=== PATIENT | male | born 1945 | race Caucasian/White ===

== ENCOUNTER 2017-04-24 18:08 | Inpatient (IN) | payer MEDICARE, MEDICAID, OTHER ==
[~2017-04-24] VITALS: Ht 167.6 cm; Wt 65.9 kg
[2017-04-24] MEDS ORDERED: SODIUM CHLORIDE 0.9% 1,000 ML IV SCH (18:14)
[2017-04-24] MEDS ORDERED: MIDAZOLAM HCL 25 MG in SODIUM CHLORIDE 0.9% 245 ML IV PRN (18:23)
[2017-04-24 18:26] LABS: HEMATOCRIT 45.5 % (39.2-51.8); HEMOGLOBIN 15.4 g/dL (13.7-18.0); WHITE BLOOD COUNT 8.4 x10^3/uL (3.4-10)
[2017-04-24] MEDS ORDERED: SODIUM CHLORIDE 0.9% 1,000ML IVBOLUS ONE (18:30)
[2017-04-24] MEDS ORDERED: ONDANSETRON 2MG/ML, 2ML IVPush ONE (18:30)
[2017-04-24] MEDS ORDERED: ASPIRIN 81 MG TABLET CHEW PO ONE (18:30)
[2017-04-24] MEDS ORDERED: MIDAZOLAM 1 MG/ML, 5ML IVP ONE (18:30)
[2017-04-24] MEDS ORDERED: PLEASE ENTER HEIGHT AND WEIGHT MC SCH (18:30)
[2017-04-24] MEDS ORDERED: VECURONIUM 10 MG IVPush ONE (18:30)
[2017-04-24] MEDS ORDERED: PLEASE ENTER ALLERGIES MC SCH ×2 (18:30)
[2017-04-24] MEDS ORDERED: MIDAZOLAM HCL 100 MG in SODIUM CHLORIDE 0.9% 80 ML IV PRN (18:30)
[2017-04-24] MEDS ORDERED: FENTANYL PF 100 MCG/2ML ONE (18:37)
[2017-04-24] MEDS ORDERED: VERAPAMIL 2.5 MG/ML, 2ML ONE (18:37)
[2017-04-24] MEDS ORDERED: MIDAZOLAM 1 MG/ML, 5ML ONE (18:37)
[2017-04-24] MEDS ORDERED: TICAGRELOR 90 MG TABLET ONE (18:37)
[2017-04-24] MEDS ORDERED: NITROGLYCERIN 5 MG/ML, 10ML ONE (18:38)
[2017-04-24] MEDS ORDERED: HEPARIN 1,000 UNITS/ML, 10ML ONE (18:38)
[2017-04-24] MEDS ORDERED: LIDOCAINE 2%, 20ML ONE (18:38)
[2017-04-24] MEDS ORDERED: BIVALIRUDIN 250 MG ONE (18:38)
[2017-04-24 18:39] LABS: ASPARTATE AMINO TRANSFERASE 183 U/L (15-37); BLOOD UREA NITROGEN 9 mg/dL (7-18)
[2017-04-24 18:40] LABS: ABG COLLECTION SITE LEFT RADIAL; COLLATERAL CIRCULATION TESTING NORMAL
[2017-04-24 18:49] LABS: IS PT STATUS REG ER OR PRE ER? YES
[2017-04-24] MEDS ORDERED: ASPIRIN 300 MG SUPP ONE (18:52)
[2017-04-24] MEDS ORDERED: VECURONIUM 10 MG ONE (18:52)
[2017-04-24] MEDS ORDERED: PIPERACILLIN/TAZO/PMX 3.375GM 50 ML IV ONE (19:00)
[2017-04-24] MEDS ORDERED: ASPIRIN 300 MG SUPP PR ONE (19:00)
[2017-04-24] MEDS ORDERED: CODE BLUE RESPONSE XX ONE (19:00)
[2017-04-24] MEDS ORDERED: SODIUM BICARB 8.4%, 50ML SYRINGE ONE (19:49)
[2017-04-24] MEDS ORDERED: AMIODARONE 150 MG in DEXTROSE 5% 100 ML IVPB ONE (19:57)
[2017-04-24] MEDS ORDERED: AMIODARONE 900 MG in DEXTROSE 5% 482 ML IV PRN ×2 (19:57→20:00)
[2017-04-24] MEDS ORDERED: AMIODARONE 150 MG in DEXTROSE 5% 100 ML IV ONE (20:00)
[2017-04-24] MEDS ORDERED: FILTER 0.22 MICRON IV PRN (20:00)
[2017-04-24] MEDS ORDERED: PROPOFOL 100 ML IV PRN (20:21)
[2017-04-24] MEDS ORDERED: PHARMACY MAY ADJ FOR RENAL FX MC SCH (20:30)
[2017-04-24] MEDS ORDERED: LIDOCAINE-MPF 1%, 2ML ENDO PRN (20:30)
[2017-04-24] MEDS ORDERED: HEPARIN 25,000 UNITS/500ML PMX 500 ML IV PRN (20:30)
[2017-04-24] MEDS ORDERED: HEPARIN 5,000 UNITS/ML, 1ML IV ONE (20:30)
[2017-04-24 20:38] LABS: HEMATOCRIT 44.3 % (39.2-51.8); HEMOGLOBIN 14.9 g/dL (13.7-18.0)
[2017-04-24] MEDS ORDERED: SODIUM PHOSPHATE 20 MMOL in SODIUM CHLORIDE 0.9% 250 ML IVPB PRN (21:06)
[2017-04-24] MEDS ORDERED: DEXMEDETOMIDINE 200 MCG in SODIUM CHLORIDE 0.9% 48 ML IV PRN (21:06)
[2017-04-24] MEDS ORDERED: FENTANYL PF 250 MCG in SODIUM CHLORIDE 0.9% 250 ML IV PRN (21:06)
[2017-04-24] MEDS ORDERED: OCULAR LUBRICANT OPHTH OINT 3.5 GM EACHEYE SCH (21:30)
[2017-04-24] MEDS ORDERED: KSCALE TO 4.0 IV SCH (21:30)
[2017-04-24] MEDS ORDERED: MAGNESIUM SULFATE 1 GM in SODIUM CHLORIDE 0.9% 50 ML IVPB PRN (21:30)
[2017-04-24] MEDS ORDERED: NOREPINEPHRINE 4 MG in SODIUM CHLORIDE 0.9% 246 ML IV PRN (21:30)
[2017-04-24] MEDS ORDERED: BUSPIRONE 10 MG TABLET NG SCH (21:30)
[2017-04-24] MEDS ORDERED: VECURONIUM 10 MG IVPush PRN (21:30)
[2017-04-24] MEDS ORDERED: FAMOTIDINE 20 MG/2 ML IVPush SCH (21:30)
[2017-04-24] MEDS: ATORVASTATIN 80 MG TABLET PO SCH (21:58)
[2017-04-24] MEDS: AMPICILLIN/SULBACTAM 3 GM in SODIUM CHLORIDE 0.9% 100 ML IV SCH (21:58)
[2017-04-24] MEDS: NOREPINEPHRINE 4 MG in SODIUM CHLORIDE 0.9% 246 ML IV PRN (23:18)
[2017-04-25 00:15] LABS: HEMATOCRIT 46.8 % (39.2-51.8); HEMOGLOBIN 15.8 g/dL (13.7-18.0)
[2017-04-25] MEDS: AMPICILLIN/SULBACTAM 3 GM in SODIUM CHLORIDE 0.9% 100 ML IV SCH ×4 (02:18→20:32)
[2017-04-25 02:51] LABS: ABG COLLECTION SITE LEFT BRACHIAL
[2017-04-25 03:02] LABS: BLOOD UREA NITROGEN 16 mg/dL (7-18)
[2017-04-25 03:24] LABS: HEMATOCRIT 42.9 % (39.2-51.8); HEMOGLOBIN 14.8 g/dL (13.7-18.0); WHITE BLOOD COUNT 14.6 x10^3/uL (3.4-10)
[2017-04-25 04:00] VITALS: BP 105/58
[2017-04-25] MEDS: HEPARIN 5,000 UNITS/ML, 1ML IV PRN ×2 (04:02→13:42)
[2017-04-25] MEDS: ASPIRIN 81 MG TABLET EC PO SCH (09:00)
[2017-04-25] MEDS: PANTOPRAZOLE 40 MG IV IV SCH (09:17)
[2017-04-25] MEDS: NOREPINEPHRINE 4 MG in SODIUM CHLORIDE 0.9% 246 ML IV PRN ×2 (09:18→17:52)
[2017-04-25 09:36] LABS: IS PT STATUS REG ER OR PRE ER? NO
[2017-04-25] MEDS: MVI ADULT IV SCH (12:38)
[2017-04-25] MEDS: THIAMINE IV SCH (12:38)
[2017-04-25] MEDS: FOLIC ACID IV SCH (12:38)
[2017-04-25] MEDS: SODIUM CHLORIDE 0.9% IV SCH (12:38)
[2017-04-25 12:52] LABS: HEMATOCRIT 42.9 % (39.2-51.8); HEMOGLOBIN 14.6 g/dL (13.7-18.0)
[2017-04-25 14:35] LABS: IS PT STATUS REG ER OR PRE ER? NO
[2017-04-25] MEDS: MIDAZOLAM HCL 25 MG in SODIUM CHLORIDE 0.9% 245 ML IV PRN (17:44)
[2017-04-25 17:50] LABS: HEMATOCRIT 38.3 % (39.2-51.8); HEMOGLOBIN 12.9 g/dL (13.7-18.0)
[2017-04-25] MEDS: ATORVASTATIN 80 MG TABLET PO SCH (21:31)
[2017-04-25 22:07] LABS: HEMATOCRIT 37.1 % (39.2-51.8); HEMOGLOBIN 12.6 g/dL (13.7-18.0)
[2017-04-25 22:22] LABS: IS PT STATUS REG ER OR PRE ER? NO
[2017-04-26] MEDS: NOREPINEPHRINE 4 MG in SODIUM CHLORIDE 0.9% 246 ML IV PRN (02:30)
[2017-04-26] MEDS: AMPICILLIN/SULBACTAM 3 GM in SODIUM CHLORIDE 0.9% 100 ML IV SCH ×4 (02:30→20:25)
[2017-04-26] MEDS: MIDAZOLAM HCL 25 MG in SODIUM CHLORIDE 0.9% 245 ML IV PRN (03:02)
[2017-04-26 03:29] LABS: HEMATOCRIT 36.5 % (39.2-51.8); HEMOGLOBIN 12.3 g/dL (13.7-18.0); WHITE BLOOD COUNT 11.8 x10^3/uL (3.4-10)
[2017-04-26 03:34] LABS: BLOOD UREA NITROGEN 21 mg/dL (7-18)
[2017-04-26 04:00] VITALS: BP 128/72
[2017-04-26 04:39] LABS: ABG COLLECTION SITE LEFT BRACHIAL
[2017-04-26] MEDS ORDERED: MAGNESIUM SULFATE PMX 4GM/100M 100 ML IV ONE (07:30)
[2017-04-26] MEDS: ASPIRIN 81 MG TABLET EC PO SCH (09:25)
[2017-04-26] MEDS: PANTOPRAZOLE 40 MG IV IV SCH (09:25)
[2017-04-26 11:06] LABS: HEMATOCRIT 33.9 % (39.2-51.8); HEMOGLOBIN 11.8 g/dL (13.7-18.0)
[2017-04-26] MEDS: MVI ADULT IV SCH (12:30)
[2017-04-26] MEDS: THIAMINE IV SCH (12:30)
[2017-04-26] MEDS: SODIUM CHLORIDE 0.9% IV SCH (12:30)
[2017-04-26] MEDS: FOLIC ACID IV SCH (12:30)
[2017-04-26] MEDS ORDERED: SODIUM CHLORIDE 0.9%, 250ML IVBOLUS ONE (13:00)
[2017-04-26 16:46] LABS: HEMATOCRIT 33.4 % (39.2-51.8); HEMOGLOBIN 11.5 g/dL (13.7-18.0)
[2017-04-26] MEDS ORDERED: DIAZEPAM 5 MG/ML, 2ML IVPush PRN (17:00)
[2017-04-26] MEDS: ATORVASTATIN 80 MG TABLET PO SCH (20:25)
[2017-04-26 21:08] LABS: HEMATOCRIT 32.2 % (39.2-51.8)
[2017-04-27] MEDS: AMPICILLIN/SULBACTAM 3 GM in SODIUM CHLORIDE 0.9% 100 ML IV SCH ×4 (02:29→20:18)
[2017-04-27 04:00] VITALS: BP 103/58
[2017-04-27 04:20] LABS: ABG COLLECTION SITE LEFT RADIAL; COLLATERAL CIRCULATION TESTING NORMAL
[2017-04-27 04:24] LABS: HEMOGLOBIN 10.6 g/dL (13.7-18.0); WHITE BLOOD COUNT 9.9 x10^3/uL (3.4-10)
[2017-04-27 04:26] LABS: BLOOD UREA NITROGEN 24 mg/dL (7-18)
[2017-04-27] MEDS ORDERED: SODIUM CHLORIDE 0.9%, 250ML IVBOLUS ONE ×2 (07:30→10:30)
[2017-04-27] MEDS ORDERED: POTASSIUM CHLORIDE 40 MEQ in SODIUM CHLORIDE 0.9% 100 ML IV ONE (08:00)
[2017-04-27] MEDS ORDERED: SODIUM CHLORIDE 0.9% 1,000 ML IV SCH (08:00)
[2017-04-27] MEDS: FENTANYL PF 100 MCG/2ML IVPush PRN ×2 (08:11→12:36)
[2017-04-27] MEDS: PANTOPRAZOLE 40 MG IV IV SCH (09:21)
[2017-04-27] MEDS: POTASSIUM CHLORIDE 10% 40 MEQ/30 ML UDC PO SCH ×2 (09:21→20:18)
[2017-04-27] MEDS: CARVEDILOL 3.125 MG TABLET PO SCH ×2 (09:21→18:21)
[2017-04-27] MEDS: ASPIRIN 81 MG TABLET EC PO SCH (09:21)
[2017-04-27] MEDS: FOLIC ACID IV SCH (10:47)
[2017-04-27] MEDS: SODIUM CHLORIDE 0.9% IV SCH (10:47)
[2017-04-27] MEDS: MVI ADULT IV SCH (10:47)
[2017-04-27] MEDS: THIAMINE IV SCH (10:47)
[2017-04-27] MEDS ORDERED: DIAZEPAM 5 MG/ML, 2ML IVPush PRN (14:00)
[2017-04-27 19:08] LABS: HEMOGLOBIN 10.8 g/dL (13.7-18.0)
[2017-04-27] MEDS: ATORVASTATIN 80 MG TABLET PO SCH (20:18)
[2017-04-27] MEDS ORDERED: PROPOFOL 100 ML IV PRN (22:00)
[2017-04-28] MEDS: AMPICILLIN/SULBACTAM 3 GM in SODIUM CHLORIDE 0.9% 100 ML IV SCH ×4 (02:14→20:45)
[2017-04-28 04:00] VITALS: BP 90/64
[2017-04-28 04:45] LABS: ABG COLLECTION SITE RIGHT RADIAL; COLLATERAL CIRCULATION TESTING NORMAL
[2017-04-28 04:51] LABS: HEMATOCRIT 30.9 % (39.2-51.8); HEMOGLOBIN 10.6 g/dL (13.7-18.0); WHITE BLOOD COUNT 10.4 x10^3/uL (3.4-10)
[2017-04-28 05:00] LABS: BLOOD UREA NITROGEN 30 mg/dL (7-18)
[2017-04-28 05:03] LABS: ASPARTATE AMINO TRANSFERASE 195 U/L (15-37)
[2017-04-28] MEDS: CARVEDILOL 3.125 MG TABLET PO SCH ×2 (06:23→18:39)
[2017-04-28] MEDS ORDERED: FUROSEMIDE 20 MG/2 ML IV ONE (09:30)
[2017-04-28] MEDS ORDERED: ENOXAPARIN 30 MG/0.3 ML SQ SCH (09:30)
[2017-04-28] MEDS: PANTOPRAZOLE 40 MG IV IV SCH (09:52)
[2017-04-28] MEDS: ASPIRIN 81 MG TABLET EC PO SCH (09:52)
[2017-04-28] MEDS: HEPARIN 5,000 UNITS/ML, 1ML SQ SCH ×2 (11:02→19:29)
[2017-04-28] MEDS: THIAMINE IV SCH (11:42)
[2017-04-28] MEDS: MVI ADULT IV SCH (11:42)
[2017-04-28] MEDS: FOLIC ACID IV SCH (11:42)
[2017-04-28] MEDS: SODIUM CHLORIDE 0.9% IV SCH (11:42)
[2017-04-28 17:44] LABS: HEMATOCRIT 34.4 % (39.2-51.8); HEMOGLOBIN 11.6 g/dL (13.7-18.0)
[2017-04-28] MEDS ORDERED: ONDANSETRON 2MG/ML, 2ML IVPush PRN (18:30)
[2017-04-28] MEDS: OXYcodone/APAP 5/325MG TABLET PO PRN (20:51)
[2017-04-28] MEDS: ATORVASTATIN 80 MG TABLET PO SCH (20:51)
[2017-04-28] MEDS: DIAZEPAM 5 MG/ML, 10ML VIAL IVPush PRN (23:58)
[2017-04-29] MEDS: AMPICILLIN/SULBACTAM 3 GM in SODIUM CHLORIDE 0.9% 100 ML IV SCH ×4 (01:58→22:12)
[2017-04-29] MEDS: HEPARIN 5,000 UNITS/ML, 1ML SQ SCH ×3 (03:13→18:09)
[2017-04-29 04:00] VITALS: BP 93/54
[2017-04-29 04:24] LABS: ABG COLLECTION SITE RIGHT RADIAL; COLLATERAL CIRCULATION TESTING NORMAL
[2017-04-29 05:43] LABS: HEMATOCRIT 31.3 % (39.2-51.8); HEMOGLOBIN 10.7 g/dL (13.7-18.0); WHITE BLOOD COUNT 10.7 x10^3/uL (3.4-10)
[2017-04-29 05:50] LABS: BLOOD UREA NITROGEN 37 mg/dL (7-18)
[2017-04-29] MEDS: CARVEDILOL 3.125 MG TABLET PO SCH (06:16)
[2017-04-29] MEDS: ASPIRIN 81 MG TABLET EC PO SCH (09:00)
[2017-04-29] MEDS: PANTOPRAZOLE 40 MG IV IV SCH (10:18)
[2017-04-29] MEDS ORDERED: FUROSEMIDE 80 MG TABLET PO ONE (12:30)
[2017-04-29] MEDS ORDERED: FUROSEMIDE 40 MG/4 ML IV ONE ×2 (13:00→14:00)
[2017-04-29] MEDS: MVI ADULT IV SCH (15:48)
[2017-04-29] MEDS: SODIUM CHLORIDE 0.9% IV SCH (15:48)
[2017-04-29] MEDS: THIAMINE IV SCH (15:48)
[2017-04-29] MEDS: FOLIC ACID IV SCH (15:48)
[2017-04-29] MEDS: CARVEDILOL 6.25 MG TABLET PO SCH (18:31)
[2017-04-29] MEDS: ATORVASTATIN 80 MG TABLET PO SCH (21:14)
[2017-04-30] MEDS: DIAZEPAM 5 MG/ML, 10ML VIAL IVPush PRN ×3 (00:11→18:01)
[2017-04-30] MEDS: HEPARIN 5,000 UNITS/ML, 1ML SQ SCH ×3 (02:46→18:17)
[2017-04-30 04:00] VITALS: BP 106/56
[2017-04-30 04:37] LABS: BLOOD UREA NITROGEN 40 mg/dL (7-18)
[2017-04-30 04:38] LABS: HEMATOCRIT 29.7 % (39.2-51.8); WHITE BLOOD COUNT 9.9 x10^3/uL (3.4-10)
[2017-04-30 04:51] LABS: ABG COLLECTION SITE RIGHT RADIAL; COLLATERAL CIRCULATION TESTING NORMAL
[2017-04-30] MEDS: CARVEDILOL 6.25 MG TABLET PO SCH ×2 (06:14→18:00)
[2017-04-30] MEDS ORDERED: FUROSEMIDE 40 MG/4 ML IV ONE (08:30)
[2017-04-30] MEDS: PANTOPRAZOLE 40 MG IV IV SCH (08:48)
[2017-04-30] MEDS: POTASSIUM CHLORIDE 10% 40 MEQ/30 ML UDC PO SCH ×2 (08:48→21:18)
[2017-04-30] MEDS: ASPIRIN 81 MG TABLET CHEW PO SCH (09:11)
[2017-04-30] MEDS: AMPICILLIN/SULBACTAM 3 GM in SODIUM CHLORIDE 0.9% 100 ML IV SCH ×2 (10:34→21:19)
[2017-04-30] MEDS: OXYcodone/APAP 5/325MG TABLET PO PRN (16:53)
[2017-04-30] MEDS: ATORVASTATIN 80 MG TABLET PO SCH (21:18)
[2017-04-30] MEDS: FENTANYL PF 100 MCG/2ML IVPush PRN (22:14)
[2017-04-30] MEDS: ALBUTEROL SULFATE 2.5 MG/3 ML NPPB PRN (22:59)
[2017-05-01] MEDS ORDERED: FUROSEMIDE 40 MG/4 ML ONE (00:04)
[2017-05-01 00:43] LABS: ABG COLLECTION SITE RIGHT RADIAL; COLLATERAL CIRCULATION TESTING NORMAL
[2017-05-01] MEDS: DIAZEPAM 5 MG/ML, 10ML VIAL IVPush PRN ×2 (02:02→12:11)
[2017-05-01] MEDS: HEPARIN 5,000 UNITS/ML, 1ML SQ SCH ×3 (02:02→18:17)
[2017-05-01 03:59] LABS: HEMATOCRIT 34.6 % (39.2-51.8); HEMOGLOBIN 11.6 g/dL (13.7-18.0); WHITE BLOOD COUNT 12.9 x10^3/uL (3.4-10)
[2017-05-01 04:05] LABS: BLOOD UREA NITROGEN 46 mg/dL (7-18)
[2017-05-01 04:08] VITALS: BP 117/67
[2017-05-01 04:15] LABS: ABG COLLECTION SITE LEFT RADIAL; COLLATERAL CIRCULATION TESTING NORMAL
[2017-05-01] MEDS: CARVEDILOL 6.25 MG TABLET PO SCH (05:03)
[2017-05-01] MEDS: OXYcodone/APAP 5/325MG TABLET PO PRN ×2 (05:03→14:38)
[2017-05-01] MEDS: ALBUTEROL SULFATE 2.5 MG/3 ML NPPB SCH ×4 (07:00→19:30)
[2017-05-01] MEDS ORDERED: FUROSEMIDE 40 MG/4 ML IV ONE ×3 (07:30→18:00)
[2017-05-01] MEDS ORDERED: ALBUMIN HUMAN 25% 50 ML IV ONE (08:00)
[2017-05-01] MEDS: LIDODERM 5% PATCH TD SCH (09:02)
[2017-05-01] MEDS: PANTOPRAZOLE 40 MG IV IV SCH (09:02)
[2017-05-01] MEDS: ASPIRIN 81 MG TABLET CHEW PO SCH (09:02)
[2017-05-01] MEDS ORDERED: FILTER 0.22 MICRON IV PRN (11:00)
[2017-05-01] MEDS ORDERED: AMIODARONE 900 MG in DEXTROSE 5% 482 ML IV PRN (11:00)
[2017-05-01] MEDS ORDERED: AMIODARONE 150 MG in DEXTROSE 5% 100 ML IV ONE (11:00)
[2017-05-01 13:26] LABS: BLOOD UREA NITROGEN 47 mg/dL (7-18)
[2017-05-01] MEDS ORDERED: PIPERACILLIN/TAZO 2.25 GM in SODIUM CHLORIDE 0.9% 50 ML IV SCH (16:30)
[2017-05-01] MEDS: ACETAMINOPHEN 325 MG TABLET PO PRN (16:35)
[2017-05-01] MEDS: ATORVASTATIN 80 MG TABLET PO SCH (21:24)
[2017-05-01] MEDS: PIPERACILLIN/TAZO/PMX 2.25GM 50 ML IVPB SCH (22:21)
[2017-05-02] MEDS: HEPARIN 5,000 UNITS/ML, 1ML SQ SCH ×3 (03:24→22:42)
[2017-05-02] MEDS: DIAZEPAM 5 MG/ML, 10ML VIAL IVPush PRN ×3 (03:24→22:40)
[2017-05-02 04:00] VITALS: BP 102/67
[2017-05-02 04:34] LABS: ABG COLLECTION SITE LEFT RADIAL; COLLATERAL CIRCULATION TESTING NORMAL
[2017-05-02] MEDS: PIPERACILLIN/TAZO/PMX 2.25GM 50 ML IVPB SCH ×4 (04:34→22:40)
[2017-05-02 05:53] LABS: HEMATOCRIT 32.2 % (39.2-51.8); HEMOGLOBIN 10.8 g/dL (13.7-18.0); WHITE BLOOD COUNT 10.2 x10^3/uL (3.4-10)
[2017-05-02 05:57] LABS: ASPARTATE AMINO TRANSFERASE 81 U/L (15-37); BLOOD UREA NITROGEN 52 mg/dL (7-18)
[2017-05-02] MEDS: ALBUTEROL SULFATE 2.5 MG/3 ML NPPB SCH ×4 (07:00→19:30)
[2017-05-02 07:07] LABS: DIFF TOTAL CELLS COUNTED 100 CELL DIFF
[2017-05-02 07:09] LABS: VERIFY COUNTS? YES
[2017-05-02 07:11] LABS: ANISOCYTOSIS 1+; POLYCHROMASIA 1+
[2017-05-02 07:13] LABS: LARGE PLATELETS 1+
[2017-05-02] MEDS: FUROSEMIDE 40 MG/4 ML IV SCH ×2 (09:19→20:58)
[2017-05-02] MEDS: ASPIRIN 81 MG TABLET CHEW PO SCH (09:19)
[2017-05-02] MEDS: PANTOPRAZOLE 40 MG IV IV SCH (09:19)
[2017-05-02] MEDS: POTASSIUM CHLORIDE 10% 40 MEQ/30 ML UDC PO SCH ×2 (09:19→20:58)
[2017-05-02] MEDS: LIDODERM 5% PATCH TD SCH (10:06)
[2017-05-02] MEDS: ATORVASTATIN 80 MG TABLET PO SCH (20:58)
[2017-05-03] MEDS: DIAZEPAM 5 MG/ML, 10ML VIAL IVPush PRN ×3 (03:46→20:10)
[2017-05-03 04:00] VITALS: BP 105/57
[2017-05-03 04:42] LABS: ABG COLLECTION SITE RIGHT RADIAL; COLLATERAL CIRCULATION TESTING NORMAL
[2017-05-03] MEDS: PIPERACILLIN/TAZO/PMX 2.25GM 50 ML IVPB SCH ×4 (05:16→22:58)
[2017-05-03] MEDS: ALBUTEROL SULFATE 2.5 MG/3 ML NPPB SCH ×4 (05:33→19:03)
[2017-05-03 06:05] LABS: HEMATOCRIT 34.1 % (39.2-51.8); HEMOGLOBIN 11.3 g/dL (13.7-18.0); WHITE BLOOD COUNT 13.7 x10^3/uL (3.4-10)
[2017-05-03 06:27] LABS: BLOOD UREA NITROGEN 43 mg/dL (7-18)
[2017-05-03 07:05] LABS: DIFF TOTAL CELLS COUNTED 100 CELL DIFF
[2017-05-03 07:14] LABS: ANISOCYTOSIS 1+; POLYCHROMASIA 1+; VERIFY COUNTS? YES
[2017-05-03 07:15] LABS: LARGE PLATELETS 1+
[2017-05-03] MEDS: ASPIRIN 81 MG TABLET CHEW PO SCH (07:57)
[2017-05-03] MEDS: HEPARIN 5,000 UNITS/ML, 1ML SQ SCH ×3 (07:57→23:06)
[2017-05-03] MEDS: LIDODERM 5% PATCH TD SCH (07:58)
[2017-05-03] MEDS: PANTOPRAZOLE 40 MG IV IV SCH (07:58)
[2017-05-03] MEDS: GUAIFENESIN 100 MG/5 ML, 10ML UDC NG SCH ×4 (08:30→20:10)
[2017-05-03] MEDS ORDERED: GUAIFENESIN ER 600 MG TABLET PO SCH (09:00)
[2017-05-03] MEDS: POTASSIUM CHLORIDE 10% 40 MEQ/30 ML UDC PO SCH ×2 (10:05→15:56)
[2017-05-03] MEDS: FUROSEMIDE 40 MG/4 ML IV SCH ×2 (10:05→20:10)
[2017-05-03] MEDS: AMIODARONE 200 MG TABLET PO SCH ×2 (10:08→20:10)
[2017-05-03] MEDS ORDERED: BENZOCAINE 20% SPRAY 0.5ML TP ONE (11:30)
[2017-05-03] MEDS: ATORVASTATIN 80 MG TABLET PO SCH (20:10)
[2017-05-03] MEDS: OXYcodone/APAP 5/325MG TABLET PO PRN (21:26)
[2017-05-04] MEDS: GUAIFENESIN 100 MG/5 ML, 10ML UDC NG SCH ×6 (00:36→20:58)
[2017-05-04] MEDS: POTASSIUM CHLORIDE 10% 40 MEQ/30 ML UDC PO SCH ×3 (00:36→15:28)
[2017-05-04] MEDS: PIPERACILLIN/TAZO/PMX 2.25GM 50 ML IVPB SCH ×2 (03:59→10:47)
[2017-05-04 04:00] VITALS: BP 113/68
[2017-05-04] MEDS: DIAZEPAM 5 MG/ML, 10ML VIAL IVPush PRN (04:00)
[2017-05-04 04:33] LABS: ABG COLLECTION SITE LEFT RADIAL; COLLATERAL CIRCULATION TESTING NORMAL
[2017-05-04 06:04] LABS: HEMATOCRIT 34.9 % (39.2-51.8); HEMOGLOBIN 11.6 g/dL (13.7-18.0); WHITE BLOOD COUNT 12.4 x10^3/uL (3.4-10)
[2017-05-04 06:13] LABS: BLOOD UREA NITROGEN 44 mg/dL (7-18)
[2017-05-04 06:16] LABS: ASPARTATE AMINO TRANSFERASE 43 U/L (15-37)
[2017-05-04] MEDS: LIDODERM 5% PATCH TD SCH (08:35)
[2017-05-04] MEDS: HEPARIN 5,000 UNITS/ML, 1ML SQ SCH ×3 (08:36→23:05)
[2017-05-04] MEDS: PANTOPRAZOLE 40 MG IV IV SCH (08:36)
[2017-05-04] MEDS: AMIODARONE 200 MG TABLET PO SCH ×2 (08:37→19:43)
[2017-05-04] MEDS: ASPIRIN 81 MG TABLET CHEW PO SCH (08:37)
[2017-05-04] MEDS: FUROSEMIDE 40 MG/4 ML IV SCH ×2 (08:45→20:58)
[2017-05-04 14:00] VITALS: BP 123/71
[2017-05-04] MEDS: PIPERACILLIN/TAZO 3.375 GM in SODIUM CHLORIDE 0.9% 50 ML IVPB SCH ×2 (18:20→23:03)
[2017-05-04] MEDS: INSULIN DETEMIR 100 UNITS/ML, PEN SQ-INSULIN SCH (18:20)
[2017-05-04] MEDS: INSULIN ASPART 100 UNITS/ML, PEN SQ-INSULIN SCH ×2 (18:21→21:13)
[2017-05-04] MEDS: ATORVASTATIN 80 MG TABLET PO SCH (20:58)
[2017-05-05] MEDS ORDERED: DIAZEPAM 5 MG/ML, 10ML VIAL IVPush PRN (01:00)
[2017-05-05] MEDS: GUAIFENESIN 100 MG/5 ML, 10ML UDC NG SCH ×6 (01:21→20:48)
[2017-05-05] MEDS: POTASSIUM CHLORIDE 10% 40 MEQ/30 ML UDC PO SCH (01:21)
[2017-05-05] MEDS: HALOPERIDOL 5 MG/ML IV PRN (01:58)
[2017-05-05 03:57] VITALS: BP 106/68
[2017-05-05] MEDS: PIPERACILLIN/TAZO 3.375 GM in SODIUM CHLORIDE 0.9% 50 ML IVPB SCH ×4 (04:14→22:19)
[2017-05-05 04:56] LABS: BLOOD UREA NITROGEN 42 mg/dL (7-18)
[2017-05-05 04:57] LABS: HEMATOCRIT 39.7 % (39.2-51.8); HEMOGLOBIN 13.2 g/dL (13.7-18.0); WHITE BLOOD COUNT 15.5 x10^3/uL (3.4-10)
[2017-05-05] MEDS: HEPARIN 5,000 UNITS/ML, 1ML SQ SCH ×2 (06:27→16:45)
[2017-05-05] MEDS: INSULIN ASPART 100 UNITS/ML, PEN SQ-INSULIN SCH ×4 (06:28→21:13)
[2017-05-05] MEDS ORDERED: POTASSIUM CHLORIDE 10% 40 MEQ/30 ML UDC PO SCH (09:00)
[2017-05-05] MEDS: FOLIC ACID 1 MG TABLET PO SCH (09:17)
[2017-05-05] MEDS: ASPIRIN 81 MG TABLET CHEW PO SCH (09:17)
[2017-05-05] MEDS: AMIODARONE 200 MG TABLET PO SCH ×2 (09:17→20:49)
[2017-05-05] MEDS: THIAMINE 100MG TABLET PO SCH (09:17)
[2017-05-05] MEDS: PANTOPRAZOLE 40 MG IV IV SCH (09:17)
[2017-05-05] MEDS: LIDODERM 5% PATCH TD SCH (09:18)
[2017-05-05] MEDS: INSULIN DETEMIR 100 UNITS/ML, PEN SQ-INSULIN SCH (09:19)
[2017-05-05] MEDS: FUROSEMIDE 40 MG/4 ML IV SCH ×2 (09:19→20:49)
[2017-05-05] MEDS: POTASSIUM CHLORIDE 20 MEQ PACKET PO SCH ×2 (09:28→22:18)
[2017-05-05] MEDS: ATORVASTATIN 80 MG TABLET PO SCH (20:48)
[2017-05-06] MEDS: HEPARIN 5,000 UNITS/ML, 1ML SQ SCH ×3 (00:49→16:42)
[2017-05-06] MEDS: GUAIFENESIN 100 MG/5 ML, 10ML UDC NG SCH ×6 (00:49→20:46)
[2017-05-06] MEDS: PIPERACILLIN/TAZO 3.375 GM in SODIUM CHLORIDE 0.9% 50 ML IVPB SCH ×4 (04:17→22:00)
[2017-05-06 04:25] VITALS: BP 108/62
[2017-05-06 04:44] LABS: HEMATOCRIT 41.3 % (39.2-51.8); HEMOGLOBIN 13.8 g/dL (13.7-18.0)
[2017-05-06 04:51] LABS: BLOOD UREA NITROGEN 47 mg/dL (7-18)
[2017-05-06] MEDS: LIDODERM 5% PATCH TD SCH (08:24)
[2017-05-06] MEDS: FOLIC ACID 1 MG TABLET PO SCH (08:25)
[2017-05-06] MEDS: THIAMINE 100MG TABLET PO SCH (08:25)
[2017-05-06] MEDS: ASPIRIN 81 MG TABLET CHEW PO SCH (08:25)
[2017-05-06] MEDS: AMIODARONE 200 MG TABLET PO SCH ×2 (08:25→20:46)
[2017-05-06] MEDS: INSULIN DETEMIR 100 UNITS/ML, PEN SQ-INSULIN SCH ×2 (08:26→20:44)
[2017-05-06] MEDS: INSULIN ASPART 100 UNITS/ML, PEN SQ-INSULIN SCH ×4 (08:26→20:44)
[2017-05-06] MEDS: PANTOPRAZOLE 40 MG IV IV SCH (08:26)
[2017-05-06] MEDS: ATORVASTATIN 80 MG TABLET PO SCH (20:46)
[2017-05-07] MEDS: GUAIFENESIN 100 MG/5 ML, 10ML UDC NG SCH ×6 (00:18→21:17)
[2017-05-07] MEDS: HEPARIN 5,000 UNITS/ML, 1ML SQ SCH ×3 (00:18→17:17)
[2017-05-07 04:10] VITALS: BP 116/75
[2017-05-07] MEDS: PIPERACILLIN/TAZO 3.375 GM in SODIUM CHLORIDE 0.9% 50 ML IVPB SCH ×4 (04:18→21:18)
[2017-05-07 04:35] LABS: HEMATOCRIT 40.7 % (39.2-51.8); HEMOGLOBIN 13.5 g/dL (13.7-18.0); WHITE BLOOD COUNT 15.1 x10^3/uL (3.4-10)
[2017-05-07 04:43] LABS: BLOOD UREA NITROGEN 51 mg/dL (7-18)
[2017-05-07] MEDS: INSULIN ASPART 100 UNITS/ML, PEN SQ-INSULIN SCH ×3 (06:03→17:17)
[2017-05-07] MEDS: THIAMINE 100MG TABLET PO SCH (08:06)
[2017-05-07] MEDS: FOLIC ACID 1 MG TABLET PO SCH (08:06)
[2017-05-07] MEDS: LIDODERM 5% PATCH TD SCH (08:07)
[2017-05-07] MEDS: AMIODARONE 200 MG TABLET PO SCH ×2 (08:07→21:18)
[2017-05-07] MEDS: ASPIRIN 81 MG TABLET CHEW PO SCH (08:07)
[2017-05-07] MEDS: POTASSIUM CHLORIDE 10% 40 MEQ/30 ML UDC PO SCH ×2 (08:10→21:18)
[2017-05-07] MEDS: INSULIN DETEMIR 100 UNITS/ML, PEN SQ-INSULIN SCH ×2 (08:10→21:26)
[2017-05-07] MEDS: HALOPERIDOL 5 MG/ML IV PRN (21:17)
[2017-05-07] MEDS: OXYcodone/APAP 5/325MG TABLET PO PRN (21:18)
[2017-05-07] MEDS: ATORVASTATIN 80 MG TABLET PO SCH (21:19)
[2017-05-07] MEDS: ALBUTEROL SULFATE 2.5 MG/3 ML NPPB PRN (22:47)
[2017-05-08] MEDS: GUAIFENESIN 100 MG/5 ML, 10ML UDC NG SCH ×7 (00:29→23:50)
[2017-05-08] MEDS: INSULIN ASPART 100 UNITS/ML, PEN SQ-INSULIN SCH ×4 (00:29→16:41)
[2017-05-08] MEDS: HEPARIN 5,000 UNITS/ML, 1ML SQ SCH ×4 (00:30→23:50)
[2017-05-08] MEDS: HALOPERIDOL 5 MG/ML IV PRN ×2 (03:19→12:29)
[2017-05-08 03:40] LABS: HEMATOCRIT 39.3 % (39.2-51.8); HEMOGLOBIN 12.9 g/dL (13.7-18.0); WHITE BLOOD COUNT 11.7 x10^3/uL (3.4-10)
[2017-05-08 03:48] LABS: BLOOD UREA NITROGEN 51 mg/dL (7-18)
[2017-05-08] MEDS ORDERED: POTASSIUM CHLORIDE 20 MEQ TAB.ER.PRT PO ONE (04:00)
[2017-05-08] MEDS ORDERED: FUROSEMIDE 40 MG/4 ML IV ONE (04:00)
[2017-05-08] MEDS: PIPERACILLIN/TAZO 3.375 GM in SODIUM CHLORIDE 0.9% 50 ML IVPB SCH ×4 (04:03→22:42)
[2017-05-08 04:47] VITALS: BP 111/61
[2017-05-08] MEDS: LIDODERM 5% PATCH TD SCH (08:14)
[2017-05-08] MEDS: THIAMINE 100MG TABLET PO SCH (08:15)
[2017-05-08] MEDS: AMIODARONE 200 MG TABLET PO SCH ×2 (08:15→21:26)
[2017-05-08] MEDS: FOLIC ACID 1 MG TABLET PO SCH (08:15)
[2017-05-08] MEDS: ASPIRIN 81 MG TABLET CHEW PO SCH (08:15)
[2017-05-08] MEDS: INSULIN DETEMIR 100 UNITS/ML, PEN SQ-INSULIN SCH ×2 (08:16→21:51)
[2017-05-08] MEDS: ATORVASTATIN 80 MG TABLET PO SCH (21:26)
[2017-05-08] MEDS: OXYcodone/APAP 5/325MG TABLET PO PRN (23:50)
[2017-05-09] MEDS: INSULIN ASPART 100 UNITS/ML, PEN SQ-INSULIN SCH ×5 (00:03→21:30)
[2017-05-09 02:23] LABS: ABG COLLECTION SITE RIGHT BRACHIAL
[2017-05-09 03:58] LABS: BLOOD UREA NITROGEN 51 mg/dL (7-18)
[2017-05-09 03:59] LABS: HEMATOCRIT 39.3 % (39.2-51.8); HEMOGLOBIN 12.9 g/dL (13.7-18.0); WHITE BLOOD COUNT 11.1 x10^3/uL (3.4-10)
[2017-05-09 04:00] VITALS: BP 112/54
[2017-05-09] MEDS: OXYcodone/APAP 5/325MG TABLET PO PRN (05:24)
[2017-05-09] MEDS: PIPERACILLIN/TAZO 3.375 GM in SODIUM CHLORIDE 0.9% 50 ML IVPB SCH ×4 (05:24→21:52)
[2017-05-09] MEDS: GUAIFENESIN 100 MG/5 ML, 10ML UDC NG SCH ×5 (05:24→21:17)
[2017-05-09] MEDS: HALOPERIDOL 5 MG/ML IV PRN (05:25)
[2017-05-09 08:29] LABS: ABG COLLECTION SITE LEFT RADIAL; COLLATERAL CIRCULATION TESTING NORMAL
[2017-05-09] MEDS ORDERED: FUROSEMIDE 40 MG/4 ML IV ONE (08:30)
[2017-05-09] MEDS ORDERED: NALOXONE 0.4 MG/ML, 1ML ONE (08:31)
[2017-05-09] MEDS: LIDODERM 5% PATCH TD SCH (08:58)
[2017-05-09] MEDS: THIAMINE 100MG TABLET PO SCH (08:58)
[2017-05-09] MEDS: FOLIC ACID 1 MG TABLET PO SCH (08:58)
[2017-05-09] MEDS: AMIODARONE 200 MG TABLET PO SCH ×2 (08:58→21:17)
[2017-05-09] MEDS: HEPARIN 5,000 UNITS/ML, 1ML SQ SCH ×2 (08:58→16:20)
[2017-05-09] MEDS ORDERED: NALOXONE 0.4 MG/ML, 1ML IVPush ONE (09:00)
[2017-05-09] MEDS: ASPIRIN 81 MG TABLET CHEW PO SCH (09:03)
[2017-05-09] MEDS: DEXTROSE 5% 1,000 ML IV SCH ×2 (09:30→21:33)
[2017-05-09] MEDS: INSULIN DETEMIR 100 UNITS/ML, PEN SQ-INSULIN SCH ×2 (09:53→21:30)
[2017-05-09] MEDS ORDERED: PROPOFOL 100 ML IV PRN (10:30)
[2017-05-09 11:06] LABS: POTASSIUM,URINE RANDOM 46 mmol/L
[2017-05-09] MEDS: SODIUM CHLORIDE 0.45% 500 ML IV SCH ×2 (11:42→12:06)
[2017-05-09 11:47] LABS: ABG COLLECTION SITE LEFT RADIAL; COLLATERAL CIRCULATION TESTING NORMAL
[2017-05-09] MEDS ORDERED: SODIUM CHLORIDE 0.45%, 1,000ML IVBOLUS ONE (12:00)
[2017-05-09] MEDS ORDERED: NOREPINEPHRINE 4 MG in SODIUM CHLORIDE 0.9% 246 ML IV PRN (13:30)
[2017-05-09] MEDS ORDERED: PROPOFOL 10 MG/ML, 100ML IV ONE (14:00)
[2017-05-09] MEDS ORDERED: ETOMIDATE 20 MG/10 ML ONE (14:00)
[2017-05-09] MEDS ORDERED: MIDAZOLAM 1 MG/ML, 5ML ONE (14:00)
[2017-05-09] MEDS ORDERED: ALBUTEROL/IPRATROPIUM 2.5MG/0.5MG, 3 ML ONE (14:05)
[2017-05-09] MEDS: ALBUTEROL SULFATE 2.5 MG/3 ML NPPB PRN (14:10)
[2017-05-09] MEDS ORDERED: DOPAMINE/D5W PMX 250 ML ONE (18:16)
[2017-05-09] MEDS ORDERED: DOPAMINE/D5W PMX 250 ML IV PRN (18:30)
[2017-05-09] MEDS: ATORVASTATIN 80 MG TABLET PO SCH (21:17)
[2017-05-09] MEDS: ACETAMINOPHEN 325 MG TABLET PO PRN (21:42)
[2017-05-10] MEDS: GUAIFENESIN 100 MG/5 ML, 10ML UDC NG SCH ×3 (00:50→08:03)
[2017-05-10] MEDS: HEPARIN 5,000 UNITS/ML, 1ML SQ SCH ×2 (00:50→08:03)
[2017-05-10] MEDS: INSULIN ASPART 100 UNITS/ML, PEN SQ-INSULIN SCH ×2 (03:39→08:07)
[2017-05-10 04:00] VITALS: BP 117/79
[2017-05-10] MEDS: PIPERACILLIN/TAZO 3.375 GM in SODIUM CHLORIDE 0.9% 50 ML IVPB SCH ×2 (04:08→10:46)
[2017-05-10 04:43] LABS: ABG COLLECTION SITE RIGHT RADIAL; COLLATERAL CIRCULATION TESTING NORMAL
[2017-05-10 05:53] LABS: HEMATOCRIT 36.4 % (39.2-51.8); WHITE BLOOD COUNT 11.4 x10^3/uL (3.4-10)
[2017-05-10 06:07] LABS: ASPARTATE AMINO TRANSFERASE 25 U/L (15-37); BLOOD UREA NITROGEN 44 mg/dL (7-18)
[2017-05-10] MEDS ORDERED: AMIODARONE 900 MG in DEXTROSE 5% 482 ML IV PRN (08:00)
[2017-05-10] MEDS ORDERED: AMIODARONE 150 MG in DEXTROSE 5% 100 ML IV ONE (08:00)
[2017-05-10] MEDS: THIAMINE 100MG TABLET PO SCH (08:03)
[2017-05-10] MEDS: LIDODERM 5% PATCH TD SCH (08:03)
[2017-05-10] MEDS: ASPIRIN 81 MG TABLET CHEW PO SCH (08:03)
[2017-05-10] MEDS: INSULIN DETEMIR 100 UNITS/ML, PEN SQ-INSULIN SCH (08:06)
[2017-05-10] MEDS ORDERED: NOREPINEPHRINE 1 MG/ML, 4ML ONE (08:09)
[2017-05-10] MEDS ORDERED: FILTER 0.22 MICRON IV PRN (08:30)
[2017-05-10] MEDS ORDERED: POTASSIUM CHLORIDE 10% 40 MEQ/30 ML UDC PO SCH (09:00)
[2017-05-10] MEDS ORDERED: FUROSEMIDE 40 MG/4 ML IV SCH (11:30)
[2017-05-10] MEDS ORDERED: ATROPINE OPHTH SOLN 1%, 5ML PO PRN (12:00)
[2017-05-10] MEDS: LORazepam 2 MG/ML, 1ML IVPush PRN ×2 (12:31→14:36)
== END 2017-05-10 15:28 | disposition expired | DRG 250 ==
LOC: ED 18:52 → EDIP 18:57 → ED 18:58 → CCU 20:08 → 5SO 05-04 13:47 → CCU 05-04 19:59
PROVIDERS: ADMIT Family Medicine; ATTEND Family Medicine
PROC: 02723ZZ Dilation of Coronary Artery, Three Arteries, Percutaneous Approach (ICD-10-PCS; principal; 2017-04-24)
PROC: 5A1955Z Respiratory Ventilation, Greater than 96 Consecutive Hours (ICD-10-PCS; 2017-04-24)
PROC: 0BH17EZ Insertion of Endotracheal Airway into Trachea, Via Natural or Artificial Opening (ICD-10-PCS; 2017-04-24)
PROC: 03HY32Z Insertion of Monitoring Device into Upper Artery, Percutaneous Approach (ICD-10-PCS; 2017-04-24)
PROC: 4A023N7 Measurement of Cardiac Sampling and Pressure, Left Heart, Percutaneous Approach (ICD-10-PCS; 2017-04-24)
PROC: B2151ZZ Fluoroscopy of Left Heart using Low Osmolar Contrast (ICD-10-PCS; 2017-04-24)
PROC: B2111ZZ Fluoroscopy of Multiple Coronary Arteries using Low Osmolar Contrast (ICD-10-PCS; 2017-04-24)
PROC: 5A12012 Performance of Cardiac Output, Single, Manual (ICD-10-PCS; 2017-04-24)
PROC: B543ZZA Ultrasonography of Right Jugular Veins, Guidance (ICD-10-PCS; 2017-04-25)
PROC: 02HV33Z Insertion of Infusion Device into Superior Vena Cava, Percutaneous Approach (ICD-10-PCS; 2017-04-25)
PROC: 0T9B70Z Drainage of Bladder with Drainage Device, Via Natural or Artificial Opening (ICD-10-PCS; 2017-04-29)
PROC: 02HV33Z Insertion of Infusion Device into Superior Vena Cava, Percutaneous Approach (ICD-10-PCS; 2017-04-29)
PROC: 5A09357 Assistance with Respiratory Ventilation, Less than 24 Consecutive Hours, Continuous Positive Airway Pressure (ICD-10-PCS; 2017-05-03)
PROC: 0BH17EZ Insertion of Endotracheal Airway into Trachea, Via Natural or Artificial Opening (ICD-10-PCS; 2017-05-09)
DX: I21.09 ST elevation (STEMI) myocardial infarction involving other coronary artery of anterior wall (principal); J96.00 Acute respiratory failure, unspecified whether with hypoxia or hypercapnia; I49.01 Ventricular fibrillation; R57.0 Cardiogenic shock; E43 Unspecified severe protein-calorie malnutrition; I50.41 Acute combined systolic (congestive) and diastolic (congestive) heart failure; K70.10 Alcoholic hepatitis without ascites; Z99.11 Dependence on respirator [ventilator] status; E83.39 Other disorders of phosphorus metabolism; I25.82 Chronic total occlusion of coronary artery; K29.71 Gastritis, unspecified, with bleeding; I50.43 Acute on chronic combined systolic (congestive) and diastolic (congestive) heart failure; K29.21 Alcoholic gastritis with bleeding; N17.9 Acute kidney failure, unspecified; E87.0 Hyperosmolality and hypernatremia; E87.1 Hypo-osmolality and hyponatremia; E87.2 Acidosis; F05 Delirium due to known physiological condition; I47.1 Supraventricular tachycardia; E11.65 Type 2 diabetes mellitus with hyperglycemia; D64.9 Anemia, unspecified; E78.5 Hyperlipidemia, unspecified; E87.6 Hypokalemia; F10.10 Alcohol abuse, uncomplicated; I11.0 Hypertensive heart disease with heart failure; I25.10 Atherosclerotic heart disease of native coronary artery without angina pectoris; I45.10 Unspecified right bundle-branch block; R13.10 Dysphagia, unspecified; N14.1 Nephropathy induced by other drugs, medicaments and biological substances; T50.8X5A Adverse effect of diagnostic agents, initial encounter; I25.5 Ischemic cardiomyopathy; Z51.5 Encounter for palliative care; R74.0 Nonspecific elevation of levels of transaminase and lactic acid dehydrogenase [LDH]; Z79.82 Long term (current) use of aspirin; Z87.891 Personal history of nicotine dependence; Z68.23 Body mass index [BMI] 23.0-23.9, adult
CPT/HCPCS: 36415; 36556; 36600; 51702; 71010; 74000; 76937; 77001; 80047; 80048; 80053; 80076; 81001; 82040; 82140; 82436; 82607; 82746; 82803; 82805; 82962; 83036; 83605; 83735; 83880; 83935; 84100; 84132; 84133; 84145; 84300; 84443; 84478; 84484; 84550; 85014; 85018; 85025; 85520; 85610; 85730; 87040; 87070; 87081; 87086; 87205; 87324; 92920; 92950; 93005; 93306; 93458; 94002; 94003; 94640; 94660; 96365; 99156; 99157; C1769; C1894; J0295; J0583; J1265; J1644; J1815; J1940; J2250; J2270; J2310; J2405; J2543; J2704; J3010; J3360; J3411; J3480; J3490; J7070; J7613; P9047; 92928; C1725; C1751; C1887; C9113; J0282; J1630; J1642; J2060; J3475; J7030; J7050; J7060; Q9967; S0028